=== PATIENT | female | born 1985 | race Caucasian/White ===

== ENCOUNTER 2022-07-01 08:12 | Emergency (ER) | payer MEDICAID ==
[~2022-07-01] VITALS: Ht 165.1 cm; Wt 90.7 kg
--- NOTE | 2022-07-01 08:20 | NUR ---
STUDENT NURSE FROM ICU CAME IN C/O SYNCOPAL EPISODE WHILE SITTING ON A CHAIR
--- NOTE | 2022-07-01 08:22 | NUR ---
BLOOD OBTAINED SENT TO LAB
[2022-07-01] MEDS ORDERED: IV NS 0.9% 1,000 ML BAG IV ONE (08:30)
--- NOTE | 2022-07-01 08:33 | NUR ---
ACCUCHECK 87
[2022-07-01 08:37] LABS: BASOPHILS # (AUTO) 0.1 K/uL (0.0-0.2); BASOPHILS % (AUTO) 0.9 % (0.0-2.0); HEMATOCRIT 41 % (33-45); HEMOGLOBIN 13.5 g/dL (11.5-14.8); LYMPHOCYTES # (AUTO) 3.1 K/uL (0.8-4.8); LYMPHOCYTES % (AUTO) 37.1 % (20.0-44.0); MEAN CORPUSCULAR HGB CONC 33 g/dl (31.0-36.0); MEAN CORPUSCULAR VOLUME 84 fL (82-100); MONOCYTES # (AUTO) 0.5 K/uL (0.1-1.30); MONOCYTES % (AUTO) 5.9 % (2.0-12.0); NEUTROPHILS # (AUTO) 4.5 K/uL (1.8-8.9); NEUTROPHILS % (AUTO) 54.1 % (43.0-81.0); PLATELET COUNT (AUTO) 252 K/uL (150-450); RED BLOOD CELL COUNT(AUTO) 4.93 MIL/uL (4.0-5.2); WHITE BLOOD COUNT (AUTO) 8.3 K/uL (4.3-11.0)
--- NOTE | 2022-07-01 08:45 | NUR ---
ESTABLISHED IV LINE 20G LEFT AC ,
--- NOTE | 2022-07-01 08:47 | NUR ---
EKG DONE BY TECH
--- NOTE | 2022-07-01 08:49 | NUR ---
MIXER PIGMENT AT BED SIDE
--- NOTE | 2022-07-01 08:56 | NUR ---
TAKEN TO CT VIA [facility]
[2022-07-01 08:57] LABS: ALANINE AMINOTRANSFERASE 23 U/L (12-78); ALBUMIN 3.7 g/dL (3.4-5.0); ALKALINE PHOSPHATASE 46 U/L (46-116); ASPARTATE AMINOTRANSFERASE 18 U/L (15-37); BILIRUBIN,DIRECT 0.1 mg/dL (0.0-0.2); BILIRUBIN,TOTAL 0.3 mg/dL (0.2-1.0); CALCIUM, SERUM 9.1 mg/dL (8.5-10.1); CARBON DIOXIDE 28 mmol/L (21-32); CHLORIDE 104 mmol/L (98-107); CREATININE 0.9 mg/dL (0.6-1.3); GLUCOSE 111 mg/dL (74-106); POTASSIUM 3.7 mmol/L (3.5-5.1); SODIUM SERUM 140 mmol/L (136-145); TOTAL PROTEIN, SERUM 7.5 g/dL (6.4-8.2); UREA NITROGEN, BLOOD 13 mg/dL (7-18)
--- NOTE | 2022-07-01 09:06 | NUR ---
PT RETURNED FROM RADIOLOGY
--- NOTE | 2022-07-01 12:28 | NUR ---
IV removed. Catheter intact and site benign. Pressure and 4x4 applied to site. No bleeding noted.
--- NOTE | 2022-07-01 12:28 | NUR ---
Patient discharged to home in stable condition. Written and verbal after care instructions given. Patient verbalizes understanding of instruction.
[2022-07-01 12:29] VITALS: BP 110/70
== END 2022-07-01 12:30 | disposition home or self-care (01) ==
LOC: ER 08:18
DX: R55 Syncope and collapse (principal)
CPT/HCPCS: 99285; 96360; 70450; 71045; 93005; 85025; 80048; 80076; 36415; 84484; 83880; 82962; J7030